=== PATIENT | female | born 1990 | race Two or more races ===

== ENCOUNTER 2017-11-17 23:47 | Outpatient (CLI) | payer OTHER | END 2017-11-18 16:49 | disposition home or self-care (01) | LOC: OBS/DEL 23:47 | DX: O47.03 False labor before 37 completed weeks of gestation, third trimester (principal); Z3A.27 27 weeks gestation of pregnancy ==

== ENCOUNTER 2018-02-06 06:43 | Inpatient (IN) | payer OTHER ==
[~2018-02-06] VITALS: Ht 152.4 cm; Wt 73.0 kg
[2018-02-06] MEDS ORDERED: PRENATAL 19 TA1 EACH PO (07:24)
[2018-02-06] MEDS ORDERED: KEFLEX500 MG PO (07:25)
== END 2018-02-08 15:47 | disposition home or self-care (01) | DRG 775 ==
LOC: OB/GYN 06:43 → LDR 06:43 → OB/GYN 13:42
PROC: 10E0XZZ Delivery of Products of Conception, External Approach (ICD-10-PCS; principal; 2018-02-06)
PROC: 0W8NXZZ Division of Female Perineum, External Approach (ICD-10-PCS; 2018-02-06)
PROC: 10907ZC Drainage of Amniotic Fluid, Therapeutic from Products of Conception, Via Natural or Artificial Opening (ICD-10-PCS; 2018-02-06)
PROC: 4A1HXCZ Monitoring of Products of Conception, Cardiac Rate, External Approach (ICD-10-PCS; 2018-02-06)
DX: O69.81X0 Labor and delivery complicated by cord around neck, without compression, not applicable or unspecified (principal); Z3A.39 39 weeks gestation of pregnancy; Z37.0 Single live birth